=== PATIENT | male | born 1965 | race Caucasian/White ===

== ENCOUNTER 2018-08-11 02:22 | Emergency (ER) | payer BC ==
[2018-08-11] MEDS ORDERED: KETOROLAC 30 MG/ML INJ ONE (02:54)
[2018-08-11] MEDS ORDERED: METOCLOPRAMIDE 10 MG/2mL INJ ONE (02:54)
[2018-08-11] MEDS ORDERED: DIPHENHYDRAMINE 50 MG/ML VIAL ONE (02:54)
[2018-08-11] MEDS ORDERED: NA CHLORIDE 0.9% 1,000 ML ONE (02:54)
--- NOTE | 2018-08-11 04:18 | ER ---
Nurse's Notes [facility] Name: Bryant Isaac II Age: 52 yrs Sex: Male : 1965 Arrival Date: 08/11/2018 Time: 02:23 Bed 6 Private MD: Diagnosis: Headache Presentation: 08/11 02:33 Presenting complaint: Patient states: I have had a really bad headache all day. I have ed1 been vomiting a few times too. I am very dizzy and I have a cough. Transition of care: patient was not received from another setting of care. Onset of symptoms was August 10, 2018. Risk Assessment: Do you want to hurt yourself or someone else? Patient reports no desire to harm self or others. Initial Sepsis Screen: Does the patient meet any 2 criteria? No. Patient's initial sepsis screen is negative. Does the patient have a suspected source of infection? No. Patient's initial sepsis screen is negative. Care prior to arrival: None. 02:33 Method Of Arrival: Ambulatory ed1 02:33 Acuity: JESSICA 3 ed1 Triage Assessment: 02:35 Headache History: Denies prior headaches. General: Appears uncomfortable, Behavior is ed1 calm, cooperative. Pain: Complains of pain in top of head, forehead, left side of the back of head and right side of the back of head Pain does not radiate. Pain currently is 9 out of 10 on a pain scale. Quality of pain is described as aching, throbbing, Pain began 1 day ago. Is continuous, Also complains of nausea. EENT: Reports pain when swallowing. Neuro: Level of Consciousness is awake, alert, obeys commands, Oriented to person, place, time, situation, Reports dizziness, headache in entire parietal area, frontal area, occipital area. Cardiovascular: Denies chest pain, Heart tones S1 S2 present. Respiratory: Airway is patent Respiratory effort is even, unlabored, Respiratory pattern is regular, symmetrical, Breath sounds are clear bilaterally. GI: Abdomen is round Bowel sounds present X 4 quads. Abd is soft and non tender X 4 quads. Reports nausea, vomiting, Patient currently denies diarrhea. : No signs and/or symptoms were reported regarding the genitourinary system. Derm: Skin is intact, is healthy with good turgor, Skin is dry, Skin is normal, Skin temperature is warm. Musculoskeletal: Circulation, motion, and sensation intact. Historical: - Allergies: 02:35 No Known Allergies; ed1 - Home Meds: 02:35 None [Active]; ed1 - PMHx: 02:35 None; ed1 - PSHx: 02:35 None; ed1 - Immunization history:: Adult Immunizations up to date. - Social history:: Smoking status: Patient uses tobacco products, smokes one-half pack cigarettes per day. - Ebola Screening: : Patient negative for fever greater than or equal to 101.5 degrees Fahrenheit, and additional compatible Ebola Virus Disease symptoms Patient denies exposure to infectious person Patient denies travel to an Ebola-affected area in the 21 days before illness onset No symptoms or risks identified at this time. Screenin:39 Abuse screen: Denies threats or abuse. Denies injuries from another. Nutritional ed1 screening: No deficits noted. Tuberculosis screening: No symptoms or risk factors identified. Fall Risk None identified. Assessment: 02:38 General: See triage assessment. ed1 02:39 General: Dr. James at bedside. ed1 03:35 Reassessment: Patient appears in no apparent distress at this time. Patient and/or ed1 family updated on plan of care and expected duration. Pain level reassessed. Patient is alert, oriented x 3, equal unlabored respirations, skin warm/dry/pink. Patient states feeling better. Patient states symptoms have improved. 04:25 Reassessment: Patient appears in no apparent distress at this time. Patient and/or ed1 family updated on plan of care and expected duration. Pain level reassessed. Patient is alert, oriented x 3, equal unlabored respirations, skin warm/dry/pink. Patient states feeling better. Patient states symptoms have improved. Vital Signs: 02:35 BP 160 / 98; Pulse 99; Resp 15; Temp 99.0(O); Pulse Ox 96% on R/A; Weight 81.65 kg; ed1 Height 5 ft. 7 in. (170.18 cm); Pain 9/10; 03:35 BP 122 / 70; Pulse 81; Resp 17; Pulse Ox 94% on R/A; Pain 5/10; ed1 04:25 BP 116 / 68; Pulse 63; Resp 15; Temp 97.2(O); Pulse Ox 100% on R/A; Pain 3/10; ed1 02:35 Body Mass Index 28.19 (81.65 kg, 170.18 cm) ed1 ED Course: 02:23 Patient arrived in ED. ds1 02:34 Triage completed. ed1 02:35 Arm band placed on right wrist. ed1 02:36 Michoacano James MD is Attending Physician. gs 02:40 Inserted saline lock: 20 gauge in right forearm, using aseptic technique. Blood lp1 collected. 02:42 Deana De La Garza, RN is Primary Nurse. ed1 02:[address] via stretcher. kw1 02:59 CT Head Brain wo Cont In Process Unspecified. EDMS 03:01 CT completed. Patient tolerated procedure well. Patient moved back from CT. kw1 04:27 Patient has correct armband on for positive identification. ed1 04:27 No provider procedures requiring assistance completed. IV discontinued, intact, ed1 bleeding controlled, No redness/swelling at site. Pressure dressing applied. Administered Medications: 02:50 Drug: TORadol 30 mg Route: IVP; Site: right forearm; ed1 03:15 Follow up: Response: No adverse reaction; Marked relief of symptoms ed1 02:50 Drug: NS 0.9% 1000 ml Route: IV; Rate: 1 bolus; Site: right forearm; ed1 04:26 Follow up: IV Status: Completed infusion; IV Intake: 1000ml ed1 02:51 Drug: Reglan 10 mg Route: IVP; Site: right forearm; ed1 03:15 Follow up: Response: No adverse reaction; Marked relief of symptoms; Nausea is decreaseded1 02:51 Drug: Benadryl 25 mg Route: IVP; Site: right forearm; ed1 03:15 Follow up: Response: No adverse reaction; Marked relief of symptoms ed1 Intake: 04:26 IV: 1000ml; Total: 1000ml. ed1 Outcome: 04:17 Discharge ordered by . gs 04:27 Discharged to home ambulatory. ed1 04:27 Condition: good 04:27 Discharge instructions given to patient, Instructed on discharge instructions, follow up and referral plans. medication usage, Demonstrated understanding of instructions, follow-up care, medications, Prescriptions given X 1. 04:28 Patient left the ED. ed1 Signatures: Dispatcher [employer] [facility] Araceli Pagan ds1 Deana De La Garza, RN RN ed1 Diann Carlos RN RN lp1 Michoacano James MD MD Ayesha Macias [facility]
--- NOTE | 2018-08-11 04:18 | EDPHYS ---
Physician Documentation [facility] Name: Bryant Isaac II Age: 52 yrs Sex: Male : 1965 Arrival Date: 08/11/2018 Time: 02:23 Bed 6 Private MD: ED Physician Michoacano James HPI: 08/11 04:14 This 52 yrs old Male presents to ER via Ambulatory with complaints of gs Headache, Dizziness, Vomiting. 04:14 The patient complains of pain to the forehead. The patient describes the headache as gs throbbing. Onset: The symptoms/episode began/occurred gradually, yesterday, at 08:00. Associated signs and symptoms: Pertinent positives: vomiting. Severity of symptoms: At its worst the pain was severe, in the emergency department the pain is unchanged. The symptoms are alleviated by nothing. the symptoms are aggravated by nothing. The patient has experienced a previous episode. Historical: - Allergies: 02:35 No Known Allergies; ed1 - Home Meds: 02:35 None [Active]; ed1 - PMHx: 02:35 None; ed1 - PSHx: 02:35 None; ed1 - Immunization history:: Adult Immunizations up to date. - Social history:: Smoking status: Patient uses tobacco products, smokes one-half pack cigarettes per day. - Ebola Screening: : Patient negative for fever greater than or equal to 101.5 degrees Fahrenheit, and additional compatible Ebola Virus Disease symptoms Patient denies exposure to infectious person Patient denies travel to an Ebola-affected area in the 21 days before illness onset No symptoms or risks identified at this time. ROS: 04:14 All other systems are negative. gs Exam: 04:14 Head/Face: Normocephalic, atraumatic. Eyes: Pupils equal round and reactive to light, gs extra-ocular motions intact. Lids and lashes normal. Conjunctiva and sclera are non-icteric and not injected. Cornea within normal limits. Periorbital areas with no swelling, redness, or edema. ENT: Nares patent. No nasal discharge, no septal abnormalities noted. Tympanic membranes are normal and external auditory canals are clear. Oropharynx with no redness, swelling, or masses, exudates, or evidence of obstruction, uvula midline. Mucous membranes moist. Neck: Trachea midline, no thyromegaly or masses palpated, and no cervical lymphadenopathy. Supple, full range of motion without nuchal rigidity, or vertebral point tenderness. No Meningismus. Chest/axilla: Normal chest wall appearance and motion. Nontender with no deformity. No lesions are appreciated. Cardiovascular: Regular rate and rhythm with a normal S1 and S2. No gallops, murmurs, or rubs. Normal PMI, no JVD. No pulse deficits. Respiratory: Lungs have equal breath sounds bilaterally, clear to auscultation and percussion. No rales, rhonchi or wheezes noted. No increased work of breathing, no retractions or nasal flaring. Abdomen/GI: Soft, non-tender, with normal bowel sounds. No distension or tympany. No guarding or rebound. No evidence of tenderness throughout. Back: No spinal tenderness. No costovertebral tenderness. Full range of motion. Skin: Warm, dry with normal turgor. Normal color with no rashes, no lesions, and no evidence of cellulitis. MS/ Extremity: Pulses equal, no cyanosis. Neurovascular intact. Full, normal range of motion. Neuro: Awake and alert, GCS 15, oriented to person, place, time, and situation. Cranial nerves II-XII grossly intact. Motor strength 5/5 in all extremities. Sensory grossly intact. Cerebellar exam normal. Normal gait. 04:14 Constitutional: The patient appears alert, awake. Vital Signs: 02:35 BP 160 / 98; Pulse 99; Resp 15; Temp 99.0(O); Pulse Ox 96% on R/A; Weight 81.65 kg; ed1 Height 5 ft. 7 in. (170.18 cm); Pain 9/10; 03:35 BP 122 / 70; Pulse 81; Resp 17; Pulse Ox 94% on R/A; Pain 5/10; ed1 04:25 BP 116 / 68; Pulse 63; Resp 15; Temp 97.2(O); Pulse Ox 100% on R/A; Pain 3/10; ed1 02:35 Body Mass Index 28.19 (81.65 kg, 170.18 cm) ed1 MDM: 02:40 Patient medically screened. 04:14 Differential diagnosis: migraine, neoplasm, tension headache, vasomotor headache. Data gs reviewed: vital signs, nurses notes. Response to treatment: the patient's symptoms have markedly improved after treatment, the patient's symptoms have resolved after treatment, and as a result, I will discharge patient. 08/11 02:41 Order name: CT Head Brain wo Cont gs Administered Medications: 02:50 Drug: TORadol 30 mg Route: IVP; Site: right forearm; ed1 03:15 Follow up: Response: No adverse reaction; Marked relief of symptoms ed1 02:50 Drug: NS 0.9% 1000 ml Route: IV; Rate: 1 bolus; Site: right forearm; ed1 04:26 Follow up: IV Status: Completed infusion; IV Intake: 1000ml ed1 02:51 Drug: Reglan 10 mg Route: IVP; Site: right forearm; ed1 03:15 Follow up: Response: No adverse reaction; Marked relief of symptoms; Nausea is decreaseded1 02:51 Drug: Benadryl 25 mg Route: IVP; Site: right forearm; ed1 03:15 Follow up: Response: No adverse reaction; Marked relief of symptoms ed1 Disposition: 08/11/18 04:17 Discharged to Home. Impression: Headache. - Condition is Stable. - Discharge Instructions: General Headache Without Cause. - Prescriptions for Fiorinal 50- 325-40 mg Oral Capsule - take 1 capsule by ORAL route every 4 hours As needed - not to exceed 6 capsules per day; 12 capsule. - Medication Reconciliation Form, Thank You Letter, Antibiotic Education, Prescription Opioid Use form. - Follow up: Emergency Department; When: 2 - 3 days; Reason: Re-evaluation by your physician. Signatures: Dispatcher [employer] EDMS Deana De La Garza RN RN ed1 Michoacano James MD MD gs Corrections: (The following items were deleted from the chart) 04:28 04:17 08/11/2018 04:17 Discharged to Home. Impression: Headache. Condition is Stable. ed1 Forms are Medication Reconciliation Form, Thank You Letter, Antibiotic Education, Prescription Opioid Use. Follow up: Emergency Department; When: 2 - 3 days; Reason: Re-evaluation by your physician. gs
--- NOTE | 2018-08-11 08:40 | RAD REPORT ---
EXAM DESCRIPTION: CT - Head Brain Wo Cont - 08/11/2018 6:53 am CLINICAL HISTORY: PAIN Severe headache, vomiting, dizziness COMPARISON: No comparisons TECHNIQUE: All CT scans are performed using dose optimization technique as appropriate and may inclu de automated exposure control or mA/KV adjustment according to patient size. FINDINGS: No intracranial hemorrhage, hydrocephalus or extra-axial fluid collection.No areas of brai n edema or evidence of midline shift. The paranasal sinuses and mastoids are clear. The calvarium is intact. IMPRESSION: No acute intracranial abnormality.
== END 2018-08-11 04:28 | disposition home or self-care (01) ==
LOC: ER 02:22
DX: R51 Headache (principal); F17.210 Nicotine dependence, cigarettes, uncomplicated
CPT/HCPCS: 70450; J2765; J7030